=== PATIENT | female | born 2000 ===

== ENCOUNTER 2021-07-24 00:31 | Inpatient (IN) ==
[2021-07-24] MEDS ORDERED: MEPERIDINE 50 MG/1 ML VIAL IV PRN (01:23)
[2021-07-24] MEDS ORDERED: OXYTOCIN/LR 20 UNIT/1,000 ML BAG IV PRN (01:23)
[2021-07-24] MEDS ORDERED: ONDANSETRON 4 MG/2 ML VIAL IV PRN ×2 (01:23→21:41)
[2021-07-24] MEDS ORDERED: BUTORPHANOL 2 MG/ML VIAL IV PRN (01:23)
[2021-07-24 01:55] LABS: Basophils % 0.2 % (0.0-0.8); Eosinophils % 0.4 % (0.00-10.9); Hematocrit 38.2 VOL% (35.7-47.0); Hemoglobin 12.6 GM/DL (12.0-16.0); Immature Granulocytes % 0.4 %; Immature Granulocytes Absolute 0.02 #; Lymphocytes # 1.2 10*3/uL (1.4-4.0); Lymphocytes % 22.3 % (21.3-54.2); Mean Platelet Volume 11.1 FL (9.6-12.0); Neutrophils % 69.7 % (38.7-73.9); Platelet Count 217 T/CUMM (130-400); Red Blood Count 4.29 MC/CUMM (3.8-5.5); Red Cell Distribution Width 14.1 % (9.3-17.3); White Blood Count 5.3 T/CUMM (4-12)
[2021-07-24 02:20] LABS: Alanine Aminotransferase 14 U/L (13-56); Albumin 2.9 G/DL (3.4-5.0); Alkaline Phosphatase 160 U/L (45-117); Aspartate Amino Transferase 14 U/L (0-37); Bilirubin,Total < 0.39 MG/DL (0.20-1.00); Blood Urea Nitrogen 9 MG/DL (7-18); Calcium 8.7 MG/DL (8.5-10.1); Carbon Dioxide 23 MMOL/L (21-32); Estimated Glom Filtration Rate 152 ML/MIN; Glucose 96 MG/DL (74-106); Osmolality,Calculated 268.1 MOS/KG (273-304); Potassium 3.7 MMOL/L (3.5-5.1); Sodium 135 MMOL/L (136-145); Total Protein 8.1 G/DL (6.4-8.2)
[2021-07-24] MEDS: LACTATED RINGERS 1,000 ML IV SCH ×4 (03:03→13:35)
[2021-07-24] MEDS ORDERED: OXYTOCIN/LR 30 UNIT/1,000 ML BAG IV PRN (03:04)
[2021-07-24] MEDS ORDERED: LEVOTHYROXINE 200 MCG TABLET PO SCH (06:30)
[2021-07-24] MEDS ORDERED: diphenhydrAMINE 50 MG/1 ML VIAL IV PRN ×2 (06:43)
[2021-07-24] MEDS ORDERED: hydrOXYzine HCL 25 MG/1 ML VIAL IM PRN (06:43)
[2021-07-24] MEDS ORDERED: NALOXONE 0.4 MG/ML VIAL IV PRN (06:43)
[2021-07-24] MEDS ORDERED: ePHEDrine 50 MG/ML VIAL IV PRN (06:43)
[2021-07-24] MEDS ORDERED: PROMETHAZINE 25 MG/1 ML VIAL IM PRN (06:43)
[2021-07-24] MEDS ORDERED: FAMOTIDINE 20 MG/2 ML VIAL IV ONE (06:44)
[2021-07-24] MEDS ORDERED: CITRIC ACID/SODIUM CITRATE 30 ML UDCUP PO ONE (06:44)
[2021-07-24] MEDS: fentaNYL 2 MCG/ROPIV 0.2% EPID 100 ML EPIDURAL SCH ×2 (07:52→17:22)
[2021-07-24 09:10] LABS: Bilirubin,Urine Negative (Negative); Blood, Urine Negative (Negative); Glucose,Urine (UA) Negative (Negative); Ketones,Urine Negative (Negative); Mucus,Urine Occasional /LPF (Occasional); Nitrite,Urine Negative (Negative); Protein,Urine Negative; RBC,Urine 3 /HPF (0-4); Squamous Epithelial Cell,Urine Occasional /HPF (0-10); Urine Appearance CLEAR (Clear); Urine Color Yellow (Yellow); Urine Specific Gravity 1.015 (1.001-1.035); Urine Urobilinogen < 2.0 EU/DL (0.2-1.0)
[2021-07-24] MEDS ORDERED: TRANEXAMIC ACID 1,000 MG/10 ML VIAL ONE (21:00)
[2021-07-24] MEDS ORDERED: miSOPROStoL 200 MCG TABLET ONE (21:00)
[2021-07-24] MEDS ORDERED: CARBOPROST TROMETHAMINE 250 MCG/ML AMP IM ONE (21:01)
[2021-07-24] MEDS ORDERED: METHYLERGONOVINE 0.2 MG/1 ML AMP ONE (21:01)
[2021-07-24] MEDS ORDERED: METHYLERGONOVINE 0.2 MG/1 ML AMP IM ONE (21:28)
[2021-07-24] MEDS ORDERED: LANOLIN 50% CREAM 0.3 OZ TUBE TOP PRN (21:41)
[2021-07-24] MEDS ORDERED: OXYTOCIN/LR 20 UNIT/1,000 ML BAG IV ONE (21:41)
[2021-07-24] MEDS ORDERED: oxyCODONE/ACETAMINOPHEN 5-325 MG TABLET PO PRN ×2 (21:41)
[2021-07-24] MEDS ORDERED: HYDROCORTISONE 2.5% RECTAL CREAM 30 GM TUBE TOP PRN (21:41)
[2021-07-24] MEDS ORDERED: BENZOCAINE 20%/MENTHOL 0.5% SPRAY 56 GM CAN TOP PRN (21:41)
[2021-07-24] MEDS ORDERED: BISACODYL 10 MG SUPP RECTAL PRN (21:41)
[2021-07-24] MEDS ORDERED: MEASLES/MUMPS/RUBELLA VACCINE 0.5 ML VIAL SUBCUT ONE (21:41)
[2021-07-24] MEDS ORDERED: WITCH HAZEL PADS 100/JAR TOP PRN (21:41)
[2021-07-24] MEDS ORDERED: DIPH/TET/ACEL PERT BOOSTER VACCINE 0.5 ML VIAL IM ONE (21:41)
[2021-07-24] MEDS ORDERED: ACETAMINOPHEN 325 MG TABLET PO PRN (21:41)
[2021-07-24] MEDS ORDERED: RHO(D) IMMUNE GLOBULIN 300 MCG SYRINGE IM ONE (21:41)
[2021-07-24 21:46] LABS: Cord Arterial Blood HCO3 22.5 MMOL/L
[2021-07-24 21:49] LABS: Cord Venous Blood HCO3 23.5 MMOL/L; Cord Venous Blood PCO2 43.6 MMHG; Cord Venous Blood PO2 27.8
[2021-07-24] MEDS: IBUPROFEN 800 MG TABLET PO PRN (22:58)
[2021-07-25 05:04] LABS: Basophils % 0.1 % (0.0-0.8); Eosinophils % 0.1 % (0.00-10.9); Hematocrit 31.7 VOL% (35.7-47.0); Hemoglobin 10.8 GM/DL (12.0-16.0); Immature Granulocytes % 0.2 %; Immature Granulocytes Absolute 0.03 #; Lymphocytes # 0.9 10*3/uL (1.4-4.0); Lymphocytes % 7.2 % (21.3-54.2); Mean Corpuscular HGB Conc 34.1 GM/DL (32-36); Mean Corpuscular Volume 88.3 FL (87-102); Mean Platelet Volume 11.2 FL (9.6-12.0); Monocytes % 4.2 % (1.7-12.7); Neutrophils % 88.2 % (38.7-73.9); Platelet Count 172 T/CUMM (130-400); Red Blood Count 3.59 MC/CUMM (3.8-5.5); Red Cell Distribution Width 13.9 % (9.3-17.3); White Blood Count 12.3 T/CUMM (4-12)
[2021-07-25] MEDS: DOCUSATE SODIUM 100 MG CAPSULE PO SCH ×3 (08:21→21:33)
[2021-07-25] MEDS: IBUPROFEN 800 MG TABLET PO PRN ×2 (10:48→19:36)
[2021-07-26] MEDS ORDERED: LEVOTHYROXINE 200 MCG TABLET PO SCH (06:30)
[2021-07-26] MEDS: DOCUSATE SODIUM 100 MG CAPSULE PO SCH (08:49)
[2021-07-26 11:54] VITALS: BP 119/79
== END 2021-07-26 13:30 | disposition home or self-care (01) | DRG 560 ==
LOC: N.LD 00:31 → N.OB 07-25 00:12
PROVIDERS: ADMIT Obstetrics & Gynecology; ATTEND Obstetrics & Gynecology